=== PATIENT | male | born 1950 | race Caucasian/White ===

== ENCOUNTER 2023-01-02 08:00 | Outpatient (NON) | payer MEDICARE, SELFPAY | END 2023-01-02 08:01 | disposition home or self-care (01) | PROVIDERS: Visit Provider Nurse Practitioner | DX: C44.229 Squamous cell carcinoma of skin of left ear and external auricular canal (principal) | CPT/HCPCS: 88305 ==

== ENCOUNTER 2023-01-13 14:02 | Outpatient (NON) | payer MEDICARE, SELFPAY | END 2023-01-13 14:03 | disposition home or self-care (01) | LOC: ANHLAB 14:02 | PROVIDERS: Visit Provider Nurse Practitioner | DX: C44.229 Squamous cell carcinoma of skin of left ear and external auricular canal (principal) | CPT/HCPCS: 88305; 88331 ==